=== PATIENT | male | born 1950 ===

== ENCOUNTER 2018-01-28 11:37 | Emergency (ER) | payer BC ==
[2018-01-28] MEDS ORDERED: 0.9 % SODIUM CHLORIDE 1,000 ML BAG IV ONE (11:47)
[2018-01-28] MEDS ORDERED: ACETAMINOPHEN 500 MG TABLET PO ONE (11:49)
--- NOTE | 2018-01-28 11:49 | Emergency Department Record ---
History of Present Illness - General Chief Complaint: Syncope Stated Complaint: SYNCOPE/FELL Time Seen by Provider: 01/28/18 11:44 Source: Patient, EMS Mode of Arrival: Ambulatory Limitations: No limitations - History of Present Illness Initial Comments: 67 yo male presents after passing out at work. He works at [employer]. He works in a very hot environment. He had been at work for about 4 hours. He became lightheaded and fell back. He hit his head. No lacerations or bleeding. He states he was normal prior to work this morning and denies any recent illness. He does have a headache at this time. No chest pain or shortness of breath. MD Complaint: Collapsed -: Minutes(s) Prodromal Symptoms: Lightheaded Description of Event: Other -: Second(s) Injuries Sustained Associated with Event: Head Current Symptoms: Headache Treatments Prior to Arrival: None - Rodolfo Coma Scale Eye Response: (4) Open spontaneously Motor Response: (6) Obeys commands Verbal Response: (5) Oriented Rodolfo Total: 15 - Related Data Home Medications Medication Instructions Recorded Confirmed Last Taken Lisinopril 10 mg PO DAILY 01/28/18 01/28/18 01/28/18 Loratadine [Claritin] 10 mg PO ASDIR PRN 01/28/18 01/28/18 Unknown Allergies Allergy/AdvReac Type Severity Reaction Status Date / Time No Known Drug Allergies Allergy Verified 01/28/18 11:46 Review of Systems Constitutional: Denies: Chills, Fever, Malaise, Weakness Eyes: Denies: Eye discharge, Eye pain, Photophobia, Vision change ENT: Denies: Congestion Respiratory: Denies: Cough Cardiovascular: Denies: Chest pain, Syncope Endocrine: Denies: Fatigue Gastrointestinal: Denies: Abdominal pain, Diarrhea, Nausea, Vomiting Genitourinary: Denies: Dysuria, Frequency, Hematuria Musculoskeletal: Denies: Arthralgia, Back pain, Joint swelling, Myalgia Skin: Denies: Bruising, Change in color, Rash Neurological: Reports: Headache. Denies: Numbness, Tremors, Vertigo, Weakness Psychiatric: Denies: Anxiety Hematological/Lymphatic: Denies: Blood Clots, Easy bleeding, Easy bruising, Swollen glands Physical Exam - General General Appearance: Alert, Oriented x3, Cooperative, No acute distress Limitations: No limitations - Head Head exam: Atraumatic, Normocephalic, Normal inspection - Eye Eye exam: Normal appearance, PERRL. negative: Conjunctival injection, Scleral icterus - ENT ENT exam: Normal exam, Mucous membranes moist Ear exam: Normal external inspection Nasal Exam: Normal inspection Mouth exam: Normal external inspection - Neck Neck exam: Normal inspection - Respiratory Respiratory exam: Normal lung sounds bilaterally. negative: Respiratory distress - Cardiovascular Cardiovascular Exam: Regular rate, Normal rhythm, Normal heart sounds Peripheral Pulses: 2+: Radial (R), Radial (L) - GI/Abdominal GI/Abdominal exam: Soft. negative: Distended, Guarding, Rebound, Rigid, Tenderness - Rectal Rectal exam: Deferred - exam: Deferred - Extremities Extremities exam: Normal inspection, Full ROM, Normal capillary refill. negative: Tenderness - Back Back exam: Denies: CVA tenderness (R), CVA tenderness (L), Paraspinal tenderness , Tenderness, Vertebral tenderness - Neurological Neurological exam: Alert, Oriented X3 - Psychiatric Psychiatric exam: Normal affect, Normal mood - Skin Skin exam: Dry, Intact, Normal color, Warm Course - Reevaluation(s) Reevaluation #1: EKG #1: 1139 Rate: 75 Rhythm: Sinus, normal [place]: Normal Intervals: [place] [address] ST segments: Normal Prior: None 01/28/18 11:48 01/28/18 12:59 The labs were reviewed No acute changes on the CMP The CBC has anemia of 10.1 with elevated MCV of 100.7 01/28/18 13:14 The HCT and cervical spine CT scans were negative for acute process. 01/28/18 13:33 The daughter is in the ED. She confirms her father is at his baseline. No confusion, nausea, new pains. He has left scalp tenderness only No memory loss, no repeating, no new complaints. She also confirms that in 2018 he has had a work up with cardiology for syncope. Today's was related to the prolonged significant heat exposure 01/28/18 14:11 [facility] was used for prior CBC comparison. He was 11.1 in July with elevated MCV then as well. 01/28/18 15:00 01/28/18 16:18 The patient has been up to the restroom and is very stable His repeat troponin was negative DC home to follow up with his PCP Off work today and tomorrow Medical Decision Making - Lab Data Result diagrams: 01/28/18 11:55 01/28/18 11:55 Disposition Disposition: Discharge Clinical Impression: Dehydration Syncope Qualifiers: Syncope type: unspecified Qualified Code(s): R55 - Syncope and collapse Heat exhaustion Qualifiers: Encounter type: initial encounter Qualified Code(s): T67.5XXA - Heat exhaustion , unspecified, initial encounter Disposition: Home, Self-Care Condition: (1) Good Instructions: Syncope (ED), Heat Exhaustion (ED) Additional Instructions: Return to ED if your symptoms worsen or if you have any concerns. Take the prescriptions provided today as directed. Follow-up with your family doctor for the next available appointment. Review the final Emergency Record and test results with your doctor on follow up Forms: Patient Portal Access Time of Disposition: 16:20 Quality - Quality Measures Quality Measures: N/A - Blood Pressure Screening Does Patient Have Any of the Following: No Blood Pressure Classification: Pre-Hypertensive BP Reading Systolic Measurement: 125 Diastolic Measurement: 75 Screening for High Blood Pressure: < Pre-Hypertensive BP, F/U Documented > [ [id number]] Pre-Hypertensive Follow-up Interventions: Referral to alternative/primary care provider.
[2018-01-28 12:03] LABS: BASO % 0.2 % (0-6); EOS % 0.8 % (0-6); GRAN % 48.5 % (47-80); HEMATOCRIT 31.6 % (42.0-52.0); HEMOGLOBIN 10.6 gm/dl (14.0-18.0); MEAN CELL VOLUME 100.6 fl (81-97); MEAN CORPUSCULAR HGB CONC 33.5 g/dl (32-36); MEAN PLATELET VOLUME 8.7 fl (7.4-10.4); MONO % 8.5 % (0-9); PLATELET COUNT 165 K/uL (130-400); RED BLOOD COUNT 3.14 M/uL (4.40-5.70); RED CELL DISTRIBUTION WIDTH 12.5 % (11.5-14.5); WHITE BLOOD COUNT W/O DIFF 5.1 K/uL (4.2-12.2)
[2018-01-28 12:05] LABS: MEAN CORPUSCULAR HEMOGLOBIN 33.7 pg (27-33)
[2018-01-28 12:13] LABS: BLOOD UREA NITROGEN 24 mg/dL (8-23); CREATININE 1.1 mg/dL (0.7-1.2); EST GLOMERULAR FILTRATION RATE > 60 mL/min
[2018-01-28 12:16] LABS: GLUCOSE,RANDOM 104 mg/dL (74-109)
[2018-01-28 12:19] LABS: ALB/GLOB RATIO 1.4 (1.1-1.8); ALBUMIN 3.5 g/dL (4.0-5.0); ALKALINE PHOSPHATASE 37 U/L (40-129); ALT/SGPT 35 U/L (<41); AST/SGOT 33 U/L (10.0-50.0)
[2018-01-28] MEDS ORDERED: 0.9 % SODIUM CHLORIDE 1000ML 1,000 ML IV ONE (12:59)
[2018-01-28] MEDS ORDERED: IBUPROFEN 400 MG TABLET PO ONE (15:15)
--- NOTE | 2018-01-30 18:41 | CT SCAN REPORT ---
EXAM: CT SCAN HEAD WO CONTRAST HISTORY: SYNCOPE. TECHNIQUE: Sequential axial images were obtained from the foramen magnum to the vertex without contrast administration. FINDINGS: Brain volume is normal. No large territorial infarct, hemorrhage, mass effect, or midline shift. No extraaxial fluid collection. The orbits, paranasal sinuses and mastoid air cells are normal. IMPRESSION: NO ACUTE INTRACRANIAL ABNORMALITY IS APPRECIATED. JOB NUMBER: [id number] [facility]
--- NOTE | 2018-01-30 18:45 | CT SCAN REPORT ---
EXAM: CT SCAN CERVICAL SPINE WO CONTRAST HISTORY: FALL TECHNIQUE: Sequential axial images were obtained through the cervical spine without intravenous contrast administration. Sagittal and coronal reformatted images were performed. FINDINGS: There is no evidence of fracture, subluxation, or perched facet. The lateral masses are well aligned. The prevertebral soft tissues are normal. The airway is patent. IMPRESSION: NO EVIDENCE OF FRACTURE, SUBLUXATION, OR PERCHED FACET. JOB NUMBER: [id number] MTDD
== END 2018-01-28 17:14 | disposition home or self-care (01) ==
LOC: ER 11:37
DX: T67.1XXA Heat syncope, initial encounter (principal); G89.11 Acute pain due to trauma; R51 Headache; E86.0 Dehydration; D64.9 Anemia, unspecified; I10 Essential (primary) hypertension; W18.39XA Other fall on same level, initial encounter; X30.XXXA Exposure to excessive natural heat, initial encounter; Y92.63 Factory as the place of occurrence of the external cause; Y99.0 Civilian activity done for income or pay
CPT/HCPCS: 70450; 72125; 80053; 84484; 85025; 93005; 93010; 96360; 96361; 99284; J7030